=== PATIENT | male | born 1975 | race Caucasian/White ===

== ENCOUNTER 2021-11-22 12:34 | Inpatient (IN) | payer MEDICAID, SELFPAY ==
[2021-11-22 12:34] VITALS: BMI 19.0
[2021-11-22 12:40] VITALS: BP 132/81; PULSE 84; RESP 17; TEMP 37.1; O2SAT 96
[2021-11-22] MEDS: bisacodyl 5 mg Tablet 10 MG PO (13:56)
[2021-11-22 14:00] VITALS: BP 132/81; PULSE 84; RESP 17; TEMP 37.1; O2SAT 96
[2021-11-22] MEDS: multivitamin therapeutic Tablet 1 TAB PO (14:42)
[2021-11-22] MEDS: cyanocobalamin 1,000 mcg Tablet 1000 MCG PO (15:19)
[2021-11-22] MEDS: nicotine 2 mg Gum BUCCAL ×2 (16:19→18:57)
[2021-11-22] MEDS: bisacodyl 10 mg Supp PR (19:04)
[2021-11-22 20:34] VITALS: BP 127/70; PULSE 90; RESP 18; TEMP 37.1; O2SAT 97
[2021-11-23] MEDS: nicotine 2 mg Gum BUCCAL ×3 (02:36→06:45)
[2021-11-23 06:00] VITALS: BP 122/79; PULSE 96; RESP 20; TEMP 37.1; O2SAT 95
[2021-11-23] MEDS: magnesium citrate Btl 296 mL PO (06:12)
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
[2021-11-23] MEDS: cyanocobalamin 1,000 mcg Tablet 1000 MCG PO (08:20)
[2021-11-23] MEDS: nicotine 21 mg Patch 1 PATCH TRANSDERMA (08:23)
[2021-11-23] MEDS: Fleet Enema 133 mL Enema PR (08:29)
--- NOTE | 2021-11-23 11:30 | PC.NURSE ---
Patient states he takes pepto bismol at home and does not have an allergy to it.
[2021-11-23 14:00] VITALS: BP 135/80; PULSE 93; RESP 17; TEMP 36.7; O2SAT 96
[2021-11-23] MEDS: bismuth subsalicylate 240 mL Btl 15 ML PO (14:01)
--- NOTE | 2021-11-23 14:01 | PC.NURSE ---
Patient with c/o stomach cramping. Request for pepto bismuth 15 ml po given.
--- NOTE | 2021-11-23 14:23 | PC.SOCIAL ---
Patient attended and participated in group.
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
[2021-11-23] MEDS: acetaminophen 325 mg Tablet 650 MG PO (20:34)
[2021-11-23 21:21] VITALS: BP 112/71; PULSE 99; RESP 18; TEMP 36.4; O2SAT 97
--- NOTE | 2021-11-24 00:44 | PC.NURSE ---
0015 Patient became very agitated when he was woken up to let him know housekeeping was going to clean bed 2 and he would be getting a room mate. He heard a patient come in not knowing anything and went off in the day room about the fact he was not sharing a room with someone like that, that the room smelled and he was being exposed to chemicals, and that he had rights. He ended up putting two chairs together in the day room and is now sleeping on top of them.
[2021-11-24 06:00] VITALS: RESP 18
[2021-11-24] MEDS: acetaminophen 325 mg Tablet 650 MG PO (06:08)
[2021-11-24] MEDS: nicotine 21 mg Patch 1 PATCH TRANSDERMA (08:27)
[2021-11-24] MEDS: cyanocobalamin 1,000 mcg Tablet 1000 MCG PO (08:28)
[2021-11-24 14:00] VITALS: BP 125/86; PULSE 80; RESP 17; TEMP 36.7; O2SAT 96
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
[2021-11-24] MEDS: bismuth subsalicylate 240 mL Btl 15 ML PO (18:16)
[2021-11-24 20:26] VITALS: BP 130/86; PULSE 78; RESP 16; TEMP 36.7; O2SAT 96
[2021-11-25 06:00] VITALS: BP 118/48; PULSE 94; RESP 18; TEMP 36.8; O2SAT 98
[2021-11-25] MEDS: acetaminophen 325 mg Tablet 650 MG PO (06:01)
[2021-11-25] MEDS: cyanocobalamin 1,000 mcg Tablet 1000 MCG PO (08:41)
[2021-11-25] MEDS: nicotine 21 mg Patch 1 PATCH TRANSDERMA (08:42)
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
[2021-11-25 10:40] VITALS: BP 118/48; PULSE 94; RESP 18; TEMP 36.8; O2SAT 98
[2021-11-25 14:27] VITALS: BP 118/48; PULSE 94; RESP 18; TEMP 36.8; O2SAT 98
== END 2021-11-25 14:45 | disposition home or self-care (01) | DRG 882 ==
PROVIDERS: Admitting Provider Psychiatry & Neurology Psychiatry; Visit Provider Psychiatry & Neurology Psychiatry
DX: F43.23 Adjustment disorder with mixed anxiety and depressed mood (principal); R44.0 Auditory hallucinations; R44.1 Visual hallucinations
CPT/HCPCS: 97150; 97165